=== PATIENT | male | born 1980 | race Caucasian/White ===

== ENCOUNTER 2018-05-14 18:07 | Emergency (ER) | payer BC ==
[~2018-05-14] VITALS: Ht 190.5 cm; Wt 111.4 kg
[2018-05-14 18:55] LABS: BASO # 0.1 (0.0-0.2); BASO % 1.3 % (0.0-2.0); EOS # 0.3 (0.0-0.7); EOS % 3.8 % (0-4.0); GRAN # 3.4 (1.4-6.5); GRAN % 48.6 % (42.2-75.2); HEMATOCRIT 42.2 % (42.0-52.0); HEMOGLOBIN 14.5 g/dl (13.5-18.0); LYMPH # 2.4 (1.2-3.4); LYMPH % 34.9 % (20.0-51.0); MEAN CELL VOLUME 89 fl (80.0-100.0); MEAN CORPUSCULAR HEMOGLOBIN 31 pg (27.0-31.0); MEAN CORPUSCULAR HGB CONC 34 g/dl (33.0-37.0); MEAN PLATELET VOLUME 9.8 fl (7.4-10.4); MONO # 0.8 (0.1-0.6); MONO % 11.1 % (1.7-9.3); PLATELET COUNT 293 K/mm3 (130-400); RED BLOOD COUNT 4.75 M/mm3 (4.20-5.60); REDCELL DISTRIBUTION WIDTH-CV 12.4 % (11.5-14.5)
[2018-05-14 19:01] LABS: PROTHROMBIN TIME 11.2 SECONDS (9.7-12.8)
[2018-05-14 19:04] LABS: PARTIAL THROMBOPLASTIN TIME 36.4 SECONDS (26.0-37.0)
[2018-05-14 19:08] LABS: ALANINE AMINOTRANSFERASE 54 U/L (21-72); ALBUMIN 4.4 gm/dL (3.5-5.0); ALKALINE PHOSPHATASE 67 U/L (50-136); ANION GAP 12 mmol/L (7-16); AST,SGOT 38 U/L (15-37); BILIRUBIN,TOTAL 1.2 mg/dL (0.0-1.0); BLOOD UREA NITROGEN 18 mg/dL (9-20); CALCIUM 9.3 mg/dL (8.4-10.2); CARBON DIOXIDE 25 mmol/L (22-30); CHLORIDE 100 mmol/L (98-107); CREATININE, serum 0.88 mg/dL (0.66-1.25); GLUCOSE 87 mg/dL (74-106); POTASSIUM 4.1 mmol/L (3.4-5.0); SODIUM 138 mmol/L (137-145); TOTAL PROTEIN 7.8 gm/dL (6.4-8.2)
[2018-05-14 19:19] LABS: TROPONIN-I < 0.012 ng/mL (0.000-0.034)
[2018-05-14 22:06] VITALS: BP 124/84; PULSE 77; TEMP 98.9
== END 2018-05-14 22:05 | disposition home or self-care (01) ==
LOC: COL.ER 18:07
PROVIDERS: Family Medicine
DX: R07.89 Other chest pain (principal); Z90.49 Acquired absence of other specified parts of digestive tract

== ENCOUNTER 2024-05-11 08:57 | Emergency (ER) | payer BC ==
[~2024-05-11] VITALS: Ht 190.5 cm; Wt 122.7 kg
[2024-05-11 11:08] LABS: BASO # 0.1 K/mm3 (0.0-0.2); BASO % 0.9 % (0.0-2.0); EOS # 0.2 K/mm3 (0.0-0.7); EOS % 1.7 % (0.0-4.0); GRAN # 5.7 K/mm3 (1.4-6.5); GRAN % 50.8 % (42.2-75.2); HEMATOCRIT 45.8 % (42.0-52.0); HEMOGLOBIN 15.9 g/dl (13.5-18.0); LYMPH # 4.3 K/mm3 (1.2-3.4); LYMPH % 38.7 % (20.0-51.0); MEAN CELL VOLUME 92 fl (80.0-100.0); MEAN CORPUSCULAR HEMOGLOBIN 32 pg (27-31); MEAN CORPUSCULAR HGB CONC 35 g/dl (33.0-37.0); MEAN PLATELET VOLUME 9.2 fl (7.4-10.4); MONO # 0.8 K/mm3 (0.1-0.6); MONO % 7.4 % (1.7-9.3); PLATELET COUNT 332 K/mm3 (130-400); RED BLOOD COUNT 4.98 M/mm3 (4.20-5.60)
[2024-05-11] MEDS ORDERED: Ketorolac 15 MG/ML VIAL IV ONE (11:15)
[2024-05-11 11:25] LABS: ALANINE AMINOTRANSFERASE 67 U/L (0-55); ALBUMIN 3.9 g/dL (3.5-5.0); ALKALINE PHOSPHATASE 52 U/L (40-150); ANION GAP 9 mmol/L (7-16); AST,SGOT 36 U/L (5-34); BILIRUBIN,TOTAL 1.9 mg/dL (0.2-1.2); BLOOD UREA NITROGEN 19 mg/dL (9-21); CALCIUM 9.3 mg/dL (8.4-10.2); CHLORIDE 111 mEq/L (98-107); CREATININE, serum 0.85 mg/dL (0.72-1.25); GLUCOSE 98 mg/dL (70-99); POTASSIUM 3.8 mEq/L (3.5-4.5); SODIUM 143 mEq/L (136-145); TOTAL PROTEIN 6.9 g/dl (6.2-8.1)
[2024-05-11 11:31] LABS: TROPONIN-I < 0.010 ng/mL (0.00-0.033)
[2024-05-11] MEDS ORDERED: DOXYCYCLINE 10100 MG PO (11:35)
[2024-05-11] MEDS ORDERED: PROAIR HFA0.09 MG/AC IH (11:36)
[2024-05-11] MEDS ORDERED: PREDNISONE20 MG PO (11:36)
[2024-05-11] MEDS ORDERED: Iohexol 300 - 100 ML VIAL IV ONE (13:39)
[2024-05-11] MEDS ORDERED: NS 100 ML IV SCH (13:39)
[2024-05-11] MEDS ORDERED: FLEXERIL 1010 MG/TAB PO (14:45)
[2024-05-11 15:09] VITALS: BP 120/80; PULSE 76; TEMP 97.6
== END 2024-05-11 15:09 | disposition home or self-care (01) ==
LOC: COL.ER 08:57
PROVIDERS: Nurse Practitioner
DX: R07.81 Pleurodynia (principal)
CPT/HCPCS: J1885; Q9967